=== PATIENT | female | born 1960 | race African-American/Black ===

== ENCOUNTER → 2022-10-02 | Emergency (ER) | payer OTHER ==
[~2022-10-02] VITALS: Ht 167.6 cm; Wt 82.1 kg
[~2022-10-02] MED LIST: ANASTROZOLE1 MG PO; KETO10TA2 PO; OMEPRAZOLE MAGN20 MG PO; ZYRTEC10 M3 PO
== END | disposition home or self-care (01) ==
LOC: ER 15:43
DX: R10.32 Left lower quadrant pain (principal); Z85.3 Personal history of malignant neoplasm of breast; Z91.040 Latex allergy status; Z88.0 Allergy status to penicillin; Z91.041 Radiographic dye allergy status; Z91.018 Allergy to other foods